=== PATIENT | female | born 1965 | race Caucasian/White ===

== ENCOUNTER → 2017-11-27 | Outpatient (CLI) | payer MEDICARE ==
--- NOTE | 2017-11-27 08:59 | CARD ---
MR#: [id number] Date of Study: 11/27/2017 Ordering Physician: ARELI ORTEGA, Referring Physician: ARELI ORTEGA, Tech: BABS Dickson APPROVED REPORT EXAM: Two-dimensional and M-mode echocardiogram with Doppler and color Doppler. Other Information Quality : AverageHR: 68bpm INDICATION Chest Pain 2D DIMENSIONS RVDd3.5 (2.9-3.5cm)Left Atrium(2D)3.0 (1.6-4.0cm) IVSd1.1 (0.7-1.1cm)Aortic Root(2D)2.6 (2.0-3.7cm) LVDd4.4 (3.9-5.9cm)LVOT Diameter2.3 (1.8-2.4cm) PWd1.2 (0.7-1.1cm)LVDs2.4 (2.5-4.0cm) FS (%) 45.2 %SV68.9 ml LVEF(%)76.7 (>50%) Aortic Valve AoV Peak Joseph.137.9cm/sAoV VTI30.3cm AO Peak GR.7.6mmHgLVOT Peak Joseph.76.9cm/s LVOT VTI 19.78cmAO Mean GR.5mmHg RAH (VMAX)2.83gb0CNC (VTI)2.62cm2 Mitral Valve MV E Tdijzerz34.5cm/sMV DECEL AFOD490rw MV A Xzmnzazn66.9cm/sE/A Ratio1.1 Pulmonary Valve PV Peak Uuojcaxh710.2cm/sPV Peak Grad.4mmHg Pulmonary Vein S1 Qburhehs75.0cm/sD2 Ikajgphr59.3cm/s LEFT VENTRICLE The left ventricle is normal size. There is mild hypertrophy of the LVPW. The left ventricular systol ic function is normal. The ejection fraction is estimated at 65-70%. There is normal LV segmental wal l motion. The left ventricular diastolic function and filling is normal for age. RIGHT VENTRICLE The right ventricle is normal size. The right ventricular systolic function is normal. ATRIA The left atrium size is normal. The right atrium size is normal. Interatrial septum not well visualiz ed. AORTIC VALVE The aortic valve is thickened but opens well. Doppler and Color Flow revealed no significant aortic r egurgitation. There is no significant aortic valvular stenosis. There is no aortic valvular vegetatio n. MITRAL VALVE The mitral valve is thickened but opens well. There is no evidence of mitral valve prolapse. There is no mitral valve stenosis. Doppler and Color-flow revealed trace mitral regurgitation. TRICUSPID VALVE The tricuspid valve is not well visualized. Doppler and Color Flow revealed trace tricuspid regurgita tion. There is no tricuspid valve stenosis. PULMONIC VALVE The pulmonic valve is not well visualized. Doppler and Color Flow revealed no pulmonic valvular regur gitation. There is no pulmonic valvular stenosis. GREAT VESSELS The aortic root is normal in size. The IVC is dilated. The IVC collapses >50% with inspiration. PERICARDIAL EFFUSION There is no pleural effusion. There is no evidence of significant pericardial effusion. Critical Notification Critical Value: No <Conclusion> The left ventricular systolic function is normal. The ejection fraction is estimated at 65-70%. There is normal LV segmental wall motion. Trace mitral regurgitation. Trace tricuspid regurgitation. There is no evidence of significant pericardial effusion. Signed by : Fadi Morales, Electronically Approved : 11/27/2017 08:58:05
== END | disposition home or self-care (01) ==
LOC: ECHO 07:33
PROVIDERS: ATTEND Internal Medicine Cardiovascular Disease
DX: I51.7 Cardiomegaly (principal)
CPT/HCPCS: 93306

== ENCOUNTER → 2019-04-15 | Outpatient (CLI) | payer MEDICARE ==
--- NOTE | 2019-04-15 17:33 | RAD ---
DATE: 04/15/2019 EXAM: MAMMO ELLA SCREENING BILATERAL HISTORY: Routine screening COMPARISON: 10/24/2012 mammographic exam This study was interpreted with the benefit of Computerized Aided Detection (CAD). Breast Density: SCATTERED The breast parenchyma shows scattered fibroglandular densities. Breast parenchyma level B. FINDINGS: Biopsy clip marker involves the central posterior left retroareolar region. No suspicious calcification, mass, or distortion. IMPRESSION: Stable BI-RADS CATEGORY: 1 NEGATIVE RECOMMENDED FOLLOW-UP: 12M 12 MONTH FOLLOW-UP PQRS compliance statement: Patient information was entered into a reminder system with a target due date in one year for the next mammogram. Mammography is a sensitive method for finding small breast cancers, but it does not detect them all and is not a substitute for careful clinical examination. A negative mammogram does not negate a clinically suspicious finding and should not result in delay in biopsying a clinically suspicious abnormality. "Our facility is accredited by the [employer] Mammography Program."
== END | disposition home or self-care (01) ==
LOC: MAMMO 07:54
PROVIDERS: ATTEND Family Medicine
DX: Z12.31 Encounter for screening mammogram for malignant neoplasm of breast (principal); F41.9 Anxiety disorder, unspecified; N64.89 Other specified disorders of breast
CPT/HCPCS: 77063; 77067

== ENCOUNTER 2019-07-06 20:23 | Emergency (ER) | payer BC, MEDICARE ==
[~2019-07-06] VITALS: Ht 165.1 cm; Wt 105.2 kg
--- NOTE | 2019-07-06 20:49 | PHYS DOC ---
Adult General Chief Complaint Chief Complaint: CHEST PAIN HPI HPI 54-year-old female presents with left-sided chest pain that radiates into her left arm. She was sitting with her drinking when she began to have a sharp pain in the left chest and left arm. She ate today 4 out of 10. She was concerned because she has not had pain like this before. She has been having a fluttering feeling intermittently in her left chest for the last 2 weeks. She is unsure what this is about. She denies shortness of breath or diaphoresis. She has no cardiac history. She is a smoker and daily drinker. She has not had a stress test or cardiac catheter. Her pain is currently 0 out of 10. Review of Systems Review of Systems Constitutional: Denies fever or chills [] Eyes: Denies change in visual acuity, redness, or eye pain [] HENT: Denies nasal congestion or sore throat [] Respiratory: Denies cough or shortness of breath [] Cardiovascular: No additional information not addressed in HPI [] GI: Denies abdominal pain, nausea, vomiting, bloody stools or diarrhea [] : Denies dysuria or hematuria [] Musculoskeletal: Denies back pain or joint pain [] Integument: Denies rash or skin lesions [] Neurologic: Denies headache, focal weakness or sensory changes [] Endocrine: Denies polyuria or polydipsia [] All other systems were reviewed and found to be within normal limits, except as documented in this note. Current Medications Current Medications Current Medications Medications (Trade) Dose Ordered Sig/Roxana Start Time Stop Time Status Last Admin Dose Admin Sodium Chloride 1,000 ml @ 1,000 mls/hr Q1H 07/06/19 20:35 07/06/19 21:34 UNV Physical Exam Physical Exam Constitutional: Well developed, obese, well nourished, no acute distress, non- toxic appearance. [] HENT: Normocephalic, atraumatic, bilateral external ears normal, oropharynx moist, no oral exudates, nose normal. [] Eyes: PERRLA, EOMI, conjunctiva normal, no discharge. Lazy left eye at baseline.[] Neck: Normal range of motion, no tenderness, supple, no stridor. [] Cardiovascular:Heart rate regular rhythm, no murmur [] Lungs & Thorax: Bilateral breath sounds clear to auscultation [] Abdomen: Bowel sounds normal, soft, no tenderness, no masses, no pulsatile masses. [] Skin: Warm, dry, no erythema, no rash. [] Back: No tenderness, no CVA tenderness. [] Extremities: No tenderness, no cyanosis, no clubbing, ROM intact, no edema. [] Neurologic: Alert and oriented X 3, normal motor function, normal sensory function, no focal deficits noted. [] Psychologic: Affect normal, judgement normal, mood normal. [] EKG EKG Sinus rhythm, rate 76, normal axis, no ST elevations or depressions.[] Radiology/Procedures Radiology/Procedures [] Impressions: Chest PA and lateral 07/06/2019. Reason for exam: Chest pain. Comparison is made with a study of 08/16/2016. No infiltrate or effusion is seen. Heart size and pulmonary vascularity appear normal. IMPRESSION: No apparent acute abnormality. Electronically signed by: Tavo Randhawa Jr., MD (07/06/2019 9:26 PM) [facility] DICTATED AND SIGNED BY: TAVO RANDHAWA Jr, MD DATE: 07/06/192125 CC: REEMA PAULSON DO; ROSENDA CARCAMO MD ~ Course & Med Decision Making Course & Med Decision Making Pertinent Labs and Imaging studies reviewed. (See chart for details) The patient's chest x-ray is unremarkable. Her EKG is unremarkable. Her labs are unremarkable. Her troponin is negative. We have not seen any irregular rhythms on the monitor and storage bin tender. The patient's heart score is 2. I do not believe that she needs to be admitted for further trending. She does appear to have a urinary tract infection. I will treat her with Rocephin in the ED followed by [place] at home. She is stable for discharge at this time. [] Dragon Disclaimer Dragon Disclaimer This electronic medical record was generated, in whole or in part, using a voice recognition dictation system. The HEART Score for CP Pts HEART Score for Chest Pain: HEART Score for Chest Pain Response (Comments) Value History Slighlty/Non-Suspicious 0 ECG Normal 0 Age >45 - < 65 1 Risk Factors 1 or 2 Risk Factors 1 Troponin < Normal Limit 0 Total 2 Risk Factors: Risk Factors: DM, Current or recent (<one month) smoker, HTN, HLP, family history of CAD, obesity. Risk Scores: Score 0 - 3: 2.5% MACE over next 6 weeks - Discharge Home Score 4 - 6: 20.3% MACE over next 6 weeks - Admit for Clinical Observation Score 7 - 10: 72.7% MACE over next 6 weeks - Early Invasive Strategies Departure Departure: Impression: Primary Impression: Chest pain Additional Impression: UTI (urinary tract infection) Disposition: HOME, SELF-CARE Condition: STABLE Referrals: ROSENDA CARCAMO MD (PCP) Patient Instructions: Chest Pain (Nonspecific), Gcjh-wz-Hemv Scripts Nitrofurantoin Monohyd/M-Cryst (MACROBID 100 MG CAPSULE) 100 Mg Capsule 1 CAP PO BID for UTI for 5 Days, #10 CAP 0 Refills Prov: REEMA PAULSON DO 07/06/19 Problem Qualifiers Primary Impression: Chest pain Chest pain type: precordial pain Qualified Codes: R07.2 - Precordial pain Additional Impression: UTI (urinary tract infection) Urinary tract infection type: acute cystitis Hematuria presence: without h ematuria Qualified Codes: N30.00 - Acute cystitis without hematuria REEMA PAULSON DO Jul 06, 2019 20:49
[2019-07-06 20:55] LABS: BASO # 0.1 x10^3/uL (0.0-0.2); BASO % 1 % (0-3); EOS # 0.2 x10^3/uL (0.0-0.7); EOS % 2 % (0-3); HEMATOCRIT 53.2 % (36.0-47.0); HEMOGLOBIN 17.7 g/dL (12.0-15.5); LYMPH # 2.7 x10^3/uL (1.0-4.8); LYMPH % 28 % (24-48); MEAN CORPUSCULAR HEMOGLOBIN 33 pg (25-35); MEAN CORPUSCULAR HGB CONC 33 g/dL (31-37); MEAN CORPUSCULAR VOLUME 98 fL (79-100); MONO # 1.1 x10^3/uL (0.0-1.1); MONO % 12 % (0-9); NEUT # 5.5 x10^3uL (1.8-7.7); NEUT % 57 % (31-73); PLATELET COUNT 165 x10^3/uL (140-400); RED BLOOD COUNT 5.44 x10^6/uL (3.50-5.40); RED CELL DISTRIBUTION WIDTH 13.7 % (11.5-14.5); WHITE BLOOD COUNT 9.6 x10^3/uL (4.0-11.0)
[2019-07-06 21:05] LABS: CALCIUM 9.2 mg/dL (8.5-10.1); CREATININE 0.9 mg/dL (0.6-1.0); GFR 64.8; POTASSIUM 3.6 mmol/L (3.5-5.1)
[2019-07-06 21:12] LABS: ALBUMIN 3.6 g/dL (3.4-5.0); ALBUMIN/GLOBULIN RATIO 0.9 (1.0-1.7); TOTAL BILIRUBIN 0.3 mg/dL (0.2-1.0); TOTAL PROTEIN 7.4 g/dL (6.4-8.2)
--- NOTE | 2019-07-06 21:29 | RAD ---
Chest PA and lateral 07/06/2019. Reason for exam: Chest pain. Comparison is made with a study of 08/16/2016. No infiltrate or effusion is seen. Heart size and pulmonary vascularity appear normal. IMPRESSION: No apparent acute abnormality. Electronically signed by: Dennis Arguello Jr., MD (07/06/2019 9:26 PM) [facility]
[2019-07-06] MEDS ORDERED: IV NORMAL SALINE 1,000ML 1,000 ML IV SCH (21:30)
[2019-07-06] MEDS ORDERED: ASPIRIN 81 MG TAB.CHEW PO ONE (21:30)
[2019-07-06 21:48] LABS: BARBITURATES NEG (NEG); BENZODIAZEPINES NEG (NEG); CANNABINOIDS POS (NEG); COCAINE NEG (NEG); METHADONE NEG (NEG); OPIATES NEG (NEG); PHENCYCLIDINE NEG (NEG)
[2019-07-06 22:05] LABS: BACTERIA,URINE MOD /HPF (0-FEW); BILIRUBIN,URINE NEG (NEG); CLARITY,URINE HAZY; COLOR,URINE YELLOW; GLUCOSE,URINE NEG (NEG); NITRITE,URINE NEG (NEG); RBC,URINE 0 /HPF (0-2); SQUAMOUS EPITHELIAL CELL,UR OCC /LPF
[2019-07-06 22:14] LABS: AMPHETAMINE/METHAMPHETAMINE NEG (NEG)
[2019-07-06] MEDS ORDERED: NITR100C62 PO (22:17)
[2019-07-06] MEDS ORDERED: cefTRIAXone SODIUM 1 GM VIAL ONE (22:20)
[2019-07-06] MEDS ORDERED: IV NORMAL SALINE 50ML 50 ML ONE (22:20)
[2019-07-06 22:45] VITALS: BP 172/118
--- NOTE | 2019-07-08 06:06 | EKG ---
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
== END 2019-07-06 22:45 | disposition home or self-care (01) ==
LOC: ER 20:23
DX: R07.2 Precordial pain (principal); N30.00 Acute cystitis without hematuria
CPT/HCPCS: 36415; 71046; 80053; 80307; 81001; 84484; 85025; 87086; 93005; 96365; 99285; J0696; J7030

== ENCOUNTER → 2020-02-10 | Outpatient (CLI) | payer BC, MEDICARE ==
[~2020-02-10] MED LIST: IOHEXOL 300 MG/ML 75 ML VIAL. IV ONE; NITR100C62 PO
--- NOTE | 2020-02-10 17:52 | RAD ---
PQRS Compliance Statement: One or more of the following individualized dose reduction techniques were utilized for this examination: 1. Automated exposure control 2. Adjustment of the mA and/or kV according to patient size 3. Use of iterative reconstruction technique CT SOFT TISSUE NECK W/CONTRAST Clinical Indication: Reason: NECK MASS ESOPHAGEAL DYSPHAGIA / Spl. Instructions: / History: Comparison: None. TECHNIQUE: Helical CT imaging of the soft tissues of the neck is performed after 75 cc of Omnipaque 300 IV contrast. Findings: There is no midline shift in the visualized brain. There are vascular coils left suprasellar cistern, left MCA distribution. Globes and orbits are incompletely imaged, otherwise unremarkable. Visualized paranasal sinuses and mastoid air cells are aerated. The parotid, submandibular, and thyroid glands are symmetric. The epiglottis, aryepiglottic folds, and piriform sinuses are normal. No overt tonsillar prominence. There is no cervical adenopathy. There is mild upper lobe centrilobular emphysema. No consolidation. Not protocoled for its evaluation, there is no obvious vascular abnormality. Cervical spine alignment is maintained. There is degenerative spondylosis of C6/C7. IMPRESSION: There is no CT explanation for patient's symptoms. Electronically signed by: Missael Awan MD (02/10/2020 5:49 PM) [id number]
== END | disposition home or self-care (01) ==
LOC: CT 07:44
PROVIDERS: ATTEND Otolaryngology
DX: R22.1 Localized swelling, mass and lump, neck (principal); R13.14 Dysphagia, pharyngoesophageal phase; J43.2 Centrilobular emphysema; M47.812 Spondylosis without myelopathy or radiculopathy, cervical region
CPT/HCPCS: 70491; Q9967

== ENCOUNTER → 2020-04-27 | Day surgery (SDC) | payer BC, MEDICARE ==
[~2020-04-27] MED LIST changes: -IOHEXOL 300 MG/ML 75 ML VIAL. IV ONE
--- NOTE | 2020-04-27 08:30 | RAD ---
Left hip AP lateral x-rays 2 views HISTORY: Left hip pain. FINDINGS: No fracture. No dislocation. No arthritic change. Soft tissues unremarkable. IMPRESSION: No acute osseous injury. Right ankle AP lateral x-rays 2 views HISTORY: Right ankle pain. FINDINGS: Small round chronic ossicles inferior to the lateral malleolus and separately inferior of the medial malleolus likely due to an old ligamentous injury with no donor site from the malleoli. No fracture. No dislocation. No talus osteochondral lesion. IMPRESSION: No acute osseous injury. Electronically signed by: Aaron Moise MD (04/27/2020 8:27 AM) [id number]
== END ==
LOC: DXRAD 07:54
PROVIDERS: ATTEND Family Medicine
DX: M25.552 Pain in left hip (principal); M25.571 Pain in right ankle and joints of right foot
CPT/HCPCS: 73502; 73600

== ENCOUNTER → 2020-11-23 | Outpatient (CLI) | payer BC, MEDICARE ==
--- NOTE | 2020-11-23 13:00 | RAD ---
History: Routine Screening 3-D DIGITAL MAMMOGRAPHY 3-D digital breast tomosynthesis images of both breasts in the CC and MLO projections were performed. Computer aided detection (CAD) was utilized. Previous: 2015 and 2018. The breast is almost entirely fatty (Category A density). Again seen is a nodule within the medial in ferior aspect of the right breast mid depth which is stable. There are no new suspicious masses, susp icious microcalcifications or areas of architectural distortion. IMPRESSION: Negative mammogram. Patient information was entered into the reminder system with a tar get due date for the next screening mammogram of November 24, 2021. Routine annual screening mammogram in one year advised. BI-RADS Category 2 benign finding A mammogram does not have 100% sensitivity and therefore a negative imaging study should not delay fu rther work up of any clinically suspicious abnormality. If your mammogram demonstrates that you have dense breast tissue, which could hide abnormalities, and if you have other risk factors for breast cancer that have been identified, you might benefit from s upplemental screening tests that may be suggested by your ordering physician. Dense breast tissue, i n and of itself, is a relatively common condition. This information is not provided to cause undue c oncern, but rather to raise your awareness and to promote discussion with your physician regarding th e presence of other risk factors, in addition to dense breast tissue. A report of your mammography re sults will be sent to you and your physician. You should contact your physician if you have any ques tions or concerns regarding this report. "Our facility is accredited by the [employer] Mammography Program." Electronically signed by: Trip Falcon MD (11/23/2020 12:57 PM) [facility]
== END ==
LOC: MAMMO 10:52
PROVIDERS: ATTEND Family Medicine
DX: Z12.31 Encounter for screening mammogram for malignant neoplasm of breast (principal)
CPT/HCPCS: 77063; 77067

== ENCOUNTER → 2021-11-18 | Outpatient (CLI) | payer BC, MEDICARE ==
--- NOTE | 2021-11-18 11:56 | RAD ---
Clinical History: Abdominal pain and polycystic liver disease Technique: Sonographic examination of the right upper quadrant of the abdomen was performed and mult iple static images were obtained. The study is significantly limited due to the polycystic liver disease and morbid obesity. Comparison: none Findings: The liver is enlarged measuring 23 Roberts length. There is innumerable cysts scattered throughout th e liver. The gallbladder appears normal. The right kidney is not well seen but shows no hydronephrosis and measures 10 cm in length. There is complete obscuration of the pancreas and the common bile duct and the portal vein. The distal aorta and IVC are not well seen. Impression: Polycystic liver disease. No evidence of gallbladder disease. Electronically signed by: Theo Ceballos III, MD (11/18/2021 11:54 AM) [facility]
== END ==
LOC: US 08:46
PROVIDERS: ATTEND Family Medicine
DX: Q44.6 Cystic disease of liver (principal); R16.0 Hepatomegaly, not elsewhere classified
CPT/HCPCS: 76705